=== PATIENT | female | born 1990 | race Caucasian/White ===

== ENCOUNTER 2022-10-14 07:24 | Inpatient (IN) ==
[2022-10-14] MEDS ORDERED: ACETAMINOPHEN 325 MG TAB PO PRN ×2 (09:36→22:42)
[2022-10-14] MEDS ORDERED: MoRPHine SULFATE 10 MG/ML CARP/VIAL IM STA (09:43)
[2022-10-14] MEDS: BUTORPHANOL TARTRATE 1 MG/ML VIAL IV PRN ×2 (10:30→12:28)
[2022-10-14] MEDS ORDERED: LACTATED RINGER'S 250 ML IV ONE (11:40)
[2022-10-14] MEDS ORDERED: LIDOCAINE 1% LOCAL 20 ML VIAL INFIL PRN (12:19)
[2022-10-14] MEDS ORDERED: OXYTOCIN 30 UNITS/500 ML BAG IV PRN ×2 (12:19→22:42)
[2022-10-14] MEDS ORDERED: ePHEDrine sulfate 50 MG/ML AMP ONE (12:23)
[2022-10-14] MEDS ORDERED: fentaNYL citrate 100 MCG/2 ML VIAL ONE (12:23)
[2022-10-14] MEDS ORDERED: SODIUM CHLORIDE 0.9% INJ 10 ML VIAL ONE (12:23)
[2022-10-14] MEDS ORDERED: LIDOCAINE 2%/EPINEPHRINE 1:200,000 20 ML SDV ONE (12:24)
[2022-10-14] MEDS ORDERED: fentaNYL 2MCG/ML ROPIVACAINE 1.25MG/ML 100 ML BAG EPI ONE (12:24)
[2022-10-14] MEDS ORDERED: BUPIVACAINE 0.25% 30 ML VIAL ONE (12:24)
[2022-10-14] MEDS: LACTATED RINGER'S 1,000 ML IV PRN ×3 (12:34→19:12)
--- NOTE | 2022-10-14 12:53 | Anesthesiology Consultation ---
Date of Service October 14, 2022 Assessment & Plan Chart Review Chart Review: Acceptable Risk for Surgery, Patient NOT seen in Pre Admission Testing and Acceptable Risk for Labor Epidural Consults Requested none ASA ASA2 Proposed Anesthesia Anesthesia Type: Labor Epidural and CSE Risk / Benefits Reviewed With: PT / POA / Parent / Guardian, Accepts Plan and Informed Consent Obtained History Height/Weight Height: 5 ft Weight: 51.256 kg Allergies Allergy/AdvReac Type Severity Reaction Status Date / Time Sulfa (Sulfonamide Allergy Unknown Verified 10/11/22 15:15 Antibiotics) Medications Home Medications Medication Instructions Recorded Confirmed Last Taken prenat.vits,thelma,iyd-xetr-kyuxf 1 tab PO DAILY 04/10/22 10/14/22 10/13/22 09:00 Active Medications Generic Name Dose Route Start Last Admin Trade Name Freq PRN Reason Stop Dose Admin Butorphanol Tartrate 1 mg 10/14/22 10:22 10/14/22 12:28 Butorphanol Tartrate 1 Mg/Ml Vial IV 11/13/22 10:21 1 mg Q2HWA PRN Administration Pain Lactated Ringer's 1,000 mls @ 125 mls/hr 10/14/22 12:19 10/14/22 12:34 Lr IV 10/16/22 12:18 999 mls/hr .Q8H PRN Administration L&D Protocol Protocol NPO Date Last Intake of Fluids: 10/14/22 Time Last Intake of Fluids: 12:00 Date Last Intake of Solids: 10/14/22 Time Last Intake of Solids: 05:30 Past Medical History Medical History Anorexia anemia;GERD Exercise / Class Metabolic Activity II 4-5 Yardwork/Stairs/Walk up hill Past Family History Family History Sister Asthma Father Asthma Mother Heart disease Past Surgical History Surgical History S/P dilation and curettage Past Anesthesia History No Hx of Anesthesia Complications and No Family Hx of Anesthesia Complications History of PONV No Hx of PONV and No Hx of Motion Sickness Social History Smoking Status: Never smoker Do You Dip or Chew Tobacco: No Hx Alcohol Use: Yes (prepregnancy) Alcohol Intake Frequency Comment: Pre- Hx Substance Use: No substance use type: does not use Physical Exam Vital Signs Last Vital Signs Temp 36.5 C 10/14/22 09:04 Pulse 75 10/14/22 09:04 Resp 16 10/14/22 07:32 BP 117/73 10/14/22 09:04 Constitutional + cachectic; no acute distress ENMT Mouth: no dentition abnormality Thyromental Distance: < 3.5 Finger Breadths Mallampati Class: II Neck normal visual inspection and trachea midline; neck extension not limited Respiratory normal respiratory effort Auscultation: lungs clear to auscultation bilaterally Cardiovascular Rate/Rhythm: regular rate and regular rhythm Heart Sounds: no murmur Musculoskeletal Spine: lumbar spine normal to inspection; normal cervical ROM and no pain with cervical ROM Extremities: full ROM of extremities Neurologic moves all extremities Motor/Sensory: no sensory deficit Psychiatric Orientation: alert and oriented x 3
[2022-10-14 12:55] LABS: Hematocrit (blood only) 33.2 % (37.0-47.0); Hemoglobin 10.8 g/dl (12.0-16.0); Mean Corpuscular Hemoglobin 25.7 pg (25.0-34.0); Mean Corpuscular Hgb Conc 32.5 g/dL (32.0-36.0); Mean Platelet Volume 11.8 fL (9.4-12.4); Platelet Count 176 K/uL (130-400); RDW Coefficient of Variation 13.9 % (11.5-14.5); RDW Standard Deviation 39.8 fL (36.4-46.3); White Blood Count 18.38 K/ul (4.8-10.8)
[2022-10-14] MEDS ORDERED: diphenhydrAMINE 50 MG/ML VIAL IV PRN (13:18)
[2022-10-14] MEDS ORDERED: fentaNYL 2MCG/ML ROPIVACAINE 1.25MG/ML 100 ML BAG EPI PRN (13:18)
[2022-10-14] MEDS ORDERED: NALOXONE HCL 1 MG in SODIUM CHLORIDE 0.9% 1000ML 1,000 ML IV PRN (13:18)
[2022-10-14] MEDS ORDERED: ePHEDrine sulfate 50 MG/ML AMP IV PRN (13:18)
[2022-10-14] MEDS ORDERED: NALBUPHINE HCL INJ 10 MG/ML AMP IV PRN (13:18)
[2022-10-14] MEDS ORDERED: ONDANSETRON INJ 2 MG/ML 2 ML VIAL IV PRN (13:18)
[2022-10-14] MEDS ORDERED: NALOXONE HCL 0.4 MG/1 ML VIAL/CARP IV PRN (13:18)
[2022-10-14] MEDS ORDERED: PROMETHAZINE HCL 25 MG in SODIUM CHLORIDE 0.9% 50 ML IV PRN (13:18)
--- NOTE | 2022-10-14 19:00 | Labor Progress Brief Note ---
Date of Service October 14, 2022 Subjective prolonged decel with recovery in hand/knee position Assessment & Plan (1) Supervision of normal intrauterine in primigravida: Plan: Progressing well. recovery from the decel in hand/ knee position. Tracing currently category 1. Admission and Anticipated Discharge Date Admission Date: October 14, 2022 Physical Exam Genitourinary: OB Exam Abdomen: + vertex Manual OB Exam: + cervical dilation (9.5), + cervical effacement 100%, + station 0 and + amniotic fluid meconium OB Exam Monitor Tracing: + external FHT monitor used, + external uterine monitor used, + category I, + category II and + normal FHT variability prolonged deceleration with recurred / knee position. Current category 1 tracing Results & Data ([facility]) Vital Signs (Past 12 Hours) Vital Signs Temp Pulse Resp BP Pulse Ox 10/14/22 18:55 78 99 10/14/22 18:52 68 113/60 10/14/22 18:50 93 H 95 10/14/22 18:49 94 H 82 L 10/14/22 18:45 87 100 10/14/22 18:40 93 H 86 L 10/14/22 18:38 77 83 L 10/14/22 18:35 70 100 10/14/22 18:30 83 94 10/14/22 18:26 81 80 L 10/14/22 18:25 81 93 10/14/22 18:23 93 H 121/75 10/14/22 18:20 78 96 10/14/22 18:15 78 97 10/14/22 18:10 77 97 10/14/22 18:09 73 116/67 10/14/22 18:05 79 94 10/14/22 18:00 78 18 99 10/14/22 17:57 75 80 L 10/14/22 17:55 81 96 10/14/22 17:54 73 120/76 10/14/22 17:50 79 88 L 10/14/22 17:45 77 100 10/14/22 17:40 89 97 10/14/22 17:39 87 124/86 10/14/22 17:35 78 97 10/14/22 17:33 75 81 L 10/14/22 17:30 71 18 94 10/14/22 17:28 79 84 L 10/14/22 17:25 77 99 10/14/22 17:23 70 120/74 10/14/22 16:00 16 10/14/22 16:00 36.4 C L 16 10/14/22 17:20 67 96 10/14/22 17:15 71 98 10/14/22 17:14 73 82 L 10/14/22 17:10 72 96 10/14/22 17:09 67 122/68 10/14/22 17:05 70 96 10/14/22 17:00 68 16 98 10/14/22 16:55 100 10/14/22 16:55 75 10/14/22 16:55 77 83 L 10/14/22 16:53 69 118/68 10/14/22 16:50 75 99 10/14/22 16:45 68 98 10/14/22 16:40 72 100 10/14/22 16:39 68 118/69 10/14/22 16:35 77 96 10/14/22 16:30 89 18 98 10/14/22 16:25 95 10/14/22 16:25 76 10/14/22 16:25 100 H 118/66 10/14/22 16:24 77 80 L 10/14/22 16:20 75 96 10/14/22 16:18 81 79 L 10/14/22 16:15 75 97 10/14/22 16:10 82 98 10/14/22 16:08 70 122/66 10/14/22 16:05 78 94 10/14/22 16:00 36.4 C L 73 16 100 10/14/22 15:55 80 96 10/14/22 15:54 78 119/68 10/14/22 15:50 73 97 10/14/22 15:45 67 97 10/14/22 15:40 86 91 10/14/22 15:39 86 114/68 10/14/22 15:34 75 98 10/14/22 15:29 90 100 10/14/22 15:24 100 10/14/22 15:24 75 02 15:24 82 119/74 10/14/22 15:19 70 100 10/14/22 15:14 67 99 10/14/22 15:09 73 93 10/14/22 15:08 72 114/64 10/14/22 15:04 70 99 10/14/22 14:59 77 99 10/14/22 14:54 77 20 99 10/14/22 14:53 75 121/66 10/14/22 14:49 89 100 10/14/22 14:44 76 98 10/14/22 14:39 69 111/56 L 100 10/14/22 14:34 72 18 100 10/14/22 14:29 74 100 10/14/22 14:27 75 82 L 10/14/22 14:24 66 99 10/14/22 14:23 66 108/57 L 10/14/22 14:19 80 94 10/14/22 14:14 73 100 10/14/22 14:09 65 100 10/14/22 14:08 67 111/56 L 10/14/22 14:04 68 20 100 10/14/22 13:59 69 100 10/14/22 13:54 71 100 10/14/22 13:53 69 107/54 L 10/14/22 13:49 73 20 100 10/14/22 13:44 82 100 10/14/22 13:39 91 H 100 10/14/22 13:38 93 H 107/57 L 10/14/22 13:34 101 H 20 99 10/14/22 13:31 101 H 113/63 10/14/22 13:29 83 113/59 L 100 10/14/22 13:27 112 H 103/55 L 10/14/22 13:24 94 10/14/22 13:24 86 10/14/22 13:25 96 H 103/59 L 10/14/22 13:24 106 H 105/55 L 10/14/22 13:21 100 H 121/56 L 10/14/22 13:19 89 L 10/14/22 13:19 102 H 10/14/22 13:19 93 H 102/65 10/14/22 13:17 86 100/59 L 10/14/22 13:14 103 H 96 10/14/22 13:15 89 97/53 L 10/14/22 13:13 88 102/56 L 10/14/22 13:11 105 H 116/69 10/14/22 13:09 94 H 123/75 97 10/14/22 13:07 75 131/79 10/14/22 13:04 80 97 10/14/22 12:59 85 100 10/14/22 12:55 84 80 L 10/14/22 12:54 80 100 10/14/22 12:49 84 96 10/14/22 12:50 85 92 10/14/22 09:04 36.5 C 75 117/73 10/14/22 07:32 16 10/14/22 07:32 36.4 C L 16 10/14/22 08:01 80 127/83 10/14/22 07:56 75 121/81 10/14/22 07:47 83 128/93 10/14/22 07:30 76 130/90 10/14/22 07:29 36.4 C L 16 Coding Level of Care Code None Diagnoses Supervision of normal intrauterine in primigravida Z34.00
--- NOTE | 2022-10-14 19:05 | History & Physical Report ---
Date of Service October 14, 2022 Assessment & Plan (1) Normal labor: Plan: Lou is a 32 year old currently 38 weeks 2 days gestational age presents in labor. 1. Fetus: Cat 1 2. Labor: Progressing. Will augment PRN 3. GBS negative (2) Supervision of normal intrauterine in primigravida: (3) Rubella non-immune status, antepartum: Admission and Anticipated Discharge Date Admission Date: October 14, 2022 History of Present Illness Primary Care Provider: NO PCP Lou is a 32-year-old currently at 38 weeks 2 days gestational age presents for labor. At initial check patient was 2 cm dilated. Progressed to 4 cm dilation. Denying leakage of fluid or vaginal bleeding. Good movement. complicated by an eating disorder. OB Labs: Blood Type B Positive 04/13/22 Antibody Screen NEGATIVE 04/13/22 Hemoglobin 11.3 g/dl (12.0-16.0) L 08/03/22 Hematocrit 33.9 % (34.1-44.9) L 08/03/22 Mean Corpuscular Volume 91.8 fL (80.0-100.0) 04/13/22 Platelet Count 151 K/uL (130-400) 04/13/22 Rubella IgG Antibody Equivocal (Immune) L 04/13/22 Rapid Plasma Reagin Nonreactive (Nonreactive) 08/03/22 Hepatitis B Surface Antigen. NON-REACTIVE (NON-REACTIVE) 04/13/22 Hepatitis C Antibody (EIA) NON-REACTIVE (NON-REACTIVE) 04/13/22 Glucose 1 Hour 50 gm Load 126 mg/dl (70-130) 08/03/22 Maternal Serum Alpha Fetoprotein 39.0 ng/mL 05/11/22 OB Optional Labs: Alpha Fetoprotein Triple Screen SEE NOTE 05/11/22 Labs Reviewed: cf/sma-negative--mln cfdna-low risk--mln Initial OB Labs (03/01/22) Chlamydia negative Gonorrhea negative RPR non reactive HIV non reactive msafp neg --smp Allergies Allergy/AdvReac Type Severity Reaction Status Date / Time Sulfa (Sulfonamide Allergy Unknown Verified 10/11/22 15:15 Antibiotics) Home Medications Medication Instructions Recorded Confirmed Type prenat.vits,thelma,qto-ebus-pvriu 1 tab PO DAILY 08/09/22 02/12/23 History Patient History Medical History Anorexia Surgical History S/P dilation and curettage Family History Sister Asthma Father Asthma Mother Heart disease Social History Smoking Status: Never smoker Second Hand Exposure: No; Do You Dip or Chew Tobacco: No; Tobacco Cessation Education Requested by Patient: No Hx Alcohol Use: Yes (prepregnancy) Hx Substance Use: No Preferred Language: Japanese Communication Ability: Effective Sanitary Napkin Machine Tender Required: No Beliefs That Will Affect Care: None marital status: Single marital status details: EKTA: Jose (31) [phone] Current Living Situation: Significant Other Current Living Situation Comment: lives with FOB and his grandmother, 1 dog. current occupational status: employed current occupation: [employer] Other Information That Helps Us Care for You: No Feels Safe at Home: Yes Safety Concerns: Feels Safe At This Time Assistive Devices: Contacts Physical Exam Genitourinary: OB Exam Abdomen: + vertex Manual OB Exam: + cervical dilation 4 cm, + cervical effacement 80% and + station -2 OB Exam Monitor Tracing: + external FHT monitor used, + external uterine monitor used, + category I and + normal FHT variability Results & Data ([facility]) Vital Signs (Past 12 Hours) Vital Signs Temp Pulse Resp BP Pulse Ox 10/14/22 18:55 78 99 10/14/22 18:52 68 113/60 10/14/22 18:50 93 H 95 10/14/22 18:49 94 H 82 L 10/14/22 18:45 87 100 10/14/22 18:40 93 H 86 L 10/14/22 18:38 77 83 L 10/14/22 18:35 70 100 10/14/22 18:30 83 94 10/14/22 18:26 81 80 L 10/14/22 18:25 81 93 10/14/22 18:23 93 H 121/75 10/14/22 18:20 78 96 10/14/22 18:15 78 97 02/12/23 18:10 77 97 10/14/22 18:09 73 116/67 10/14/22 18:05 79 94 10/14/22 18:00 78 18 99 10/14/22 17:57 75 80 L 10/14/22 17:55 81 96 10/14/22 17:54 73 120/76 10/14/22 17:50 79 88 L 10/14/22 17:45 77 100 10/14/22 17:40 89 97 10/14/22 17:39 87 124/86 10/14/22 17:35 78 97 10/14/22 17:33 75 81 L 10/14/22 17:30 71 18 94 10/14/22 17:28 79 84 L 10/14/22 17:25 77 99 10/14/22 17:23 70 120/74 10/14/22 16:00 16 10/14/22 16:00 36.4 C L 16 10/14/22 17:20 67 96 10/14/22 17:15 71 98 10/14/22 17:14 73 82 L 10/14/22 17:10 72 96 10/14/22 17:09 67 122/68 10/14/22 17:05 70 96 10/14/22 17:00 68 16 98 10/14/22 16:55 100 10/14/22 16:55 75 10/14/22 16:55 77 83 L 10/14/22 16:53 69 118/68 10/14/22 16:50 75 99 10/14/22 16:45 68 98 10/14/22 16:40 72 100 10/14/22 16:39 68 118/69 10/14/22 16:35 77 96 10/14/22 16:30 89 18 98 10/14/22 16:25 95 10/14/22 16:25 76 10/14/22 16:25 100 H 118/66 10/14/22 16:24 77 80 L 10/14/22 16:20 75 96 10/14/22 16:18 81 79 L 10/14/22 16:15 75 97 10/14/22 16:10 82 98 10/14/22 16:08 70 122/66 10/14/22 16:05 78 94 10/14/22 16:00 36.4 C L 73 16 100 10/14/22 15:55 80 96 10/14/22 15:54 78 119/68 10/14/22 15:50 73 97 10/14/22 15:45 67 97 10/14/22 15:40 86 91 10/14/22 15:39 86 114/68 10/14/22 15:34 75 98 10/14/22 15:29 90 100 10/14/22 15:24 100 10/14/22 15:24 75 10/14/22 15:24 82 119/74 10/14/22 15:19 70 100 10/14/22 15:14 67 99 10/14/22 15:09 73 93 10/14/22 15:08 72 114/64 10/14/22 15:04 70 99 10/14/22 14:59 77 99 10/14/22 14:54 77 20 99 10/14/22 14:53 75 121/66 10/14/22 14:49 89 100 10/14/22 14:44 76 98 10/14/22 14:39 69 111/56 L 100 10/14/22 14:34 72 18 100 10/14/22 14:29 74 100 10/14/22 14:27 75 82 L 10/14/22 14:24 66 99 10/14/22 14:23 66 108/57 L 10/14/22 14:19 80 94 10/14/22 14:14 73 100 10/14/22 14:09 65 100 10/14/22 14:08 67 111/56 L 10/14/22 14:04 68 20 100 10/14/22 13:59 69 100 10/14/22 13:54 71 100 10/14/22 13:53 69 107/54 L 10/14/22 13:49 73 20 100 10/14/22 13:44 82 100 10/14/22 13:39 91 H 100 10/14/22 13:38 93 H 107/57 L 10/14/22 13:34 101 H 20 99 10/14/22 13:31 101 H 113/63 10/14/22 13:29 83 113/59 L 100 10/14/22 13:27 112 H 103/55 L 10/14/22 13:24 94 10/14/22 13:24 86 10/14/22 13:25 96 H 103/59 L 10/14/22 13:24 106 H 105/55 L 10/14/22 13:21 100 H 121/56 L 10/14/22 13:19 89 L 10/14/22 13:19 102 H 10/14/22 13:19 93 H 102/65 10/14/22 13:17 86 100/59 L 10/14/22 13:14 103 H 96 10/14/22 13:15 89 97/53 L 10/14/22 13:13 88 102/56 L 10/14/22 13:11 105 H 116/69 10/14/22 13:09 94 H 123/75 97 10/14/22 13:07 75 131/79 10/14/22 13:04 80 97 10/14/22 12:59 85 100 10/14/22 12:55 84 80 L 10/14/22 12:54 80 100 10/14/22 12:49 84 96 10/14/22 12:50 85 92 10/14/22 09:04 36.5 C 75 117/73 10/14/22 07:32 16 10/14/22 07:32 36.4 C L 16 10/14/22 08:01 80 127/83 10/14/22 07:56 75 121/81 10/14/22 07:47 83 128/93 10/14/22 07:30 76 130/90 10/14/22 07:29 36.4 C L 16 Coding Level of Care Code None Diagnoses Normal labor O80; Z37.9 Supervision of normal intrauterine in primigravida Z34.00 Rubella non-immune status, antepartum O09.899; Z28.39
[2022-10-14] MEDS ORDERED: DIPHTHERIA/TETANUS/PERTUSSIS 0.5mL SYR/VIAL (Age 7+yrs) IM ONE (22:42)
[2022-10-14] MEDS ORDERED: bisacodyL 10 MG SUPP PR PRN (22:42)
[2022-10-14] MEDS ORDERED: HYDROCORTISONE ACETATE 25 MG SUPP PR PRN (22:42)
[2022-10-14] MEDS ORDERED: BENZOCAINE 20% AER SPR 82.5 GM CAN EXT PRN (22:42)
[2022-10-15] MEDS: IBUPROFEN 600 MG TAB PO PRN ×4 (00:53→16:26)
--- NOTE | 2022-10-15 05:31 | Obstetrical Progress Note ---
Date of Service October 15, 2022 Assessment & Plan (1) care following vaginal delivery: (2) Rubella non-immune status, antepartum: Plan - Overall, feeling well and eating well today - Infant feeding going well without concern - Urinating and passing gas appropriately - Ambulating well in room - Pain controlled w/ Ibuprofen - Hgb 10.8 on 10/14 - Vitals stable and wnl - Routine PP care progressing well - Rubella non-immune - Anticipate discharge @ 24-48 hours PP - Recommending f/u outpatient in 6 weeks Admission and Anticipated Discharge Date Admission Date: October 14, 2022 Supervising Physician Co-Signing Physician Notes Patient seen with resident and agree with the above findings and plan. Routine post care Subjective Patient is a 32F who is PPD # 1 following delivery at 38 2/. She reports feeling well overall this morning. - Ambulation - well throughout room - Voiding/Ceja - independent voids, no dysuria or pressure - Gas/Stool - passing gas, no bowel movement - Diet - regular, no nausea or emesis - Lochia - diminishing, moderate amount - Feeding Type - breast feeding - Pain Level - 5/10, controlled with Ibuprofen Review of Systems - Denies fever, chills, sweats - Denies shortness of breath, difficulty breathing, chest pain, palpitations, chest pressure. - Denies breast pain. - Denies dysuria. - Denies headache or changes in vision. Physical Exam Physical Exam: General: Alert, oriented. No acute distress. Cardiac: RRR, normal S1/S2, no murmurs/rubs/gallops. Respiratory: Non-labored, CTAB, no wheezes/rales/rhonchi. Symmetric chest rise. Abdomen: Soft, nontender, nondistended. Bowel sounds present. Uterus: Uterine fundus firm, palpable 2 cm below umbilicus. Lower Extremities: No lower extremity edema or swelling. No deep calf pain. Kimberley's negative bilaterally. Results & Data ([facility]) Vital Signs (Past 12 Hours) Vital Signs Temp Pulse Pulse Resp BP BP Pulse Ox 10/15/22 03:10 36.9 C 80 16 123/77 10/15/22 00:50 37.2 C 89 22 129/83 100 10/14/22 23:10 18 10/15/22 00:40 18 10/15/22 00:10 18 10/14/22 23:40 18 10/14/22 23:25 18 10/14/22 22:55 18 10/14/22 22:40 18 10/14/22 19:05 36.7 C 18 10/14/22 19:05 10/15/22 00:35 100 H 139/87 10/15/22 00:23 91 H 127/79 10/15/22 00:08 90 133/87 10/14/22 23:53 75 131/84 10/14/22 23:38 79 131/81 10/14/22 22:29 20 10/14/22 22:29 20 10/14/22 23:23 90 136/76 10/14/22 22:15 18 10/14/22 22:15 18 10/14/22 22:00 20 10/14/22 22:00 20 10/14/22 23:08 94 H 135/71 10/14/22 22:53 105 H 136/85 10/14/22 22:40 104 H 79 L 10/14/22 22:38 105 H 97 10/14/22 22:39 110 H 123/67 10/14/22 22:33 107 H 100 10/14/22 22:28 155 H 70 L 10/14/22 22:23 106 H 85 L 10/14/22 22:18 109 H 99 10/14/22 22:19 116 H 81 L 10/14/22 22:13 118 H 97 10/14/22 22:08 137 H 128/76 98 10/14/22 22:07 109 H 81 L 10/14/22 22:03 103 H 97 10/14/22 22:01 80 L 10/14/22 22:01 95 H 10/14/22 22:01 96 H 119/72 10/14/22 21:57 125 H 93 10/14/22 21:52 147 H 95 10/14/22 21:45 101 H 20 84 L 10/14/22 21:40 97 H 96 10/14/22 21:39 148 H 113/70 10/14/22 21:35 103 H 100 10/14/22 21:30 139 H 18 99 10/14/22 21:26 105 H 84 L 10/14/22 21:25 106 H 95 10/14/22 21:23 110 H 122/79 10/14/22 21:20 100 10/14/22 21:20 94 H 10/14/22 21:20 108 H 119/77 10/14/22 21:15 99 H 18 94 10/14/22 21:10 127 H 97 10/14/22 21:09 81 L 10/14/22 21:09 111 H 10/14/22 21:09 112 H 132/90 10/14/22 21:05 104 H 93 10/14/22 21:03 36.7 C 87 18 81 L 10/14/22 21:00 94 H 18 97 10/14/22 20:55 89 97 10/14/22 20:53 93 H 123/69 10/14/22 20:50 85 98 10/14/22 20:45 98 10/14/22 20:45 92 H 10/14/22 20:45 91 H 84 L 10/14/22 20:40 87 99 10/14/22 20:38 93 H 118/70 10/14/22 20:35 95 H 97 10/14/22 20:32 92 H 82 L 10/14/22 20:30 86 18 96 10/14/22 20:25 82 99 10/14/22 20:23 82 118/70 10/14/22 20:20 75 98 10/14/22 20:15 78 94 10/14/22 20:10 78 84 L 10/14/22 20:08 82 120/66 10/14/22 20:06 87 82 L 10/14/22 20:05 96 H 95 10/14/22 20:00 84 18 99 10/14/22 19:55 89 98 10/14/22 19:54 83 126/79 10/14/22 19:53 84 125/78 10/14/22 19:50 87 99 10/14/22 19:47 89 84 L 10/14/22 19:45 97 H 99 10/14/22 19:40 87 97 10/14/22 19:38 75 116/67 10/14/22 19:36 77 83 L 10/14/22 19:35 80 99 10/14/22 19:30 74 18 100 10/14/22 19:25 71 100 10/14/22 19:24 77 116/70 10/14/22 19:20 73 100 10/14/22 19:15 85 96 10/14/22 19:10 83 98 10/14/22 19:08 75 110/57 L 10/14/22 19:05 36.7 C 80 18 100 10/14/22 18:01 36.8 C 10/14/22 19:00 84 100 10/14/22 18:55 78 99 10/14/22 18:52 68 113/60 10/14/22 18:50 93 H 95 10/14/22 18:49 94 H 82 L 10/14/22 18:45 87 100 10/14/22 18:40 93 H 86 L 10/14/22 18:38 77 83 L 10/14/22 18:35 70 100 10/14/22 18:30 83 94 10/14/22 18:26 81 80 L 10/14/22 18:25 81 93 10/14/22 18:23 93 H 121/75 10/14/22 18:20 78 96 10/14/22 18:15 78 97 10/14/22 18:10 77 97 10/14/22 18:09 73 116/67 10/14/22 18:05 79 94 10/14/22 18:00 78 18 99 10/14/22 17:57 75 80 L 10/14/22 17:55 81 96 10/14/22 17:54 73 120/76 10/14/22 17:50 79 88 L 10/14/22 17:45 77 100 10/14/22 17:40 89 97 10/14/22 17:39 87 124/86 10/14/22 17:35 78 97 10/14/22 17:33 75 81 L O2 Del Method 10/15/22 03:10 Room Air 10/15/22 00:50 Room Air 10/14/22 23:10 10/15/22 00:40 10/15/22 00:10 10/14/22 23:40 10/14/22 23:25 10/14/22 22:55 10/14/22 22:40 10/14/22 19:05 10/14/22 19:05 Room Air 10/15/22 00:35 10/15/22 00:23 10/15/22 00:08 10/14/22 23:53 10/14/22 23:38 10/14/22 22:29 10/14/22 22:29 10/14/22 23:23 10/14/22 22:15 10/14/22 22:15 10/14/22 22:00 10/14/22 22:00 10/14/22 23:08 10/14/22 22:53 10/14/22 22:40 10/14/22 22:38 10/14/22 22:39 10/14/22 22:33 10/14/22 22:28 10/14/22 22:23 10/14/22 22:18 10/14/22 22:19 10/14/22 22:13 10/14/22 22:08 10/14/22 22:07 10/14/22 22:03 10/14/22 22:01 10/14/22 22:01 10/14/22 22:01 10/14/22 21:57 10/14/22 21:52 10/14/22 21:45 10/14/22 21:40 10/14/22 21:39 10/14/22 21:35 10/14/22 21:30 10/14/22 21:26 10/14/22 21:25 10/14/22 21:23 10/14/22 21:20 10/14/22 21:20 10/14/22 21:20 10/14/22 21:15 10/14/22 21:10 10/14/22 21:09 10/14/22 21:09 10/14/22 21:09 10/14/22 21:05 10/14/22 21:03 10/14/22 21:00 10/14/22 20:55 10/14/22 20:53 10/14/22 20:50 10/14/22 20:45 10/14/22 20:45 10/14/22 20:45 10/14/22 20:40 10/14/22 20:38 10/14/22 20:35 10/14/22 20:32 10/14/22 20:30 10/14/22 20:25 10/14/22 20:23 10/14/22 20:20 10/14/22 20:15 10/14/22 20:10 10/14/22 20:08 10/14/22 20:06 10/14/22 20:05 10/14/22 20:00 10/14/22 19:55 10/14/22 19:54 10/14/22 19:53 10/14/22 19:50 10/14/22 19:47 10/14/22 19:45 10/14/22 19:40 10/14/22 19:38 10/14/22 19:36 10/14/22 19:35 10/14/22 19:30 10/14/22 19:25 10/14/22 19:24 10/14/22 19:20 10/14/22 19:15 10/14/22 19:10 10/14/22 19:08 10/14/22 19:05 10/14/22 18:01 10/14/22 19:00 10/14/22 18:55 10/14/22 18:52 10/14/22 18:50 10/14/22 18:49 10/14/22 18:45 10/14/22 18:40 10/14/22 18:38 10/14/22 18:35 10/14/22 18:30 10/14/22 18:26 10/14/22 18:25 10/14/22 18:23 10/14/22 18:20 10/14/22 18:15 10/14/22 18:10 10/14/22 18:09 10/14/22 18:05 10/14/22 18:00 10/14/22 17:57 10/14/22 17:55 10/14/22 17:54 10/14/22 17:50 10/14/22 17:45 10/14/22 17:40 10/14/22 17:39 10/14/22 17:35 10/14/22 17:33 Resident Activity Tracking Resident Involvement: Resident Care Provided Care Provided: Adult Hospital Medicine
[2022-10-15 08:41] LABS: Hematocrit (blood only) 32.3 % (37.0-47.0); Hemoglobin 10.4 g/dl (12.0-16.0)
[2022-10-15] MEDS: PRENATAL VITAMIN 1 TAB PO SCH (08:54)
[2022-10-15] MEDS: DOCUSATE SODIUM 100 MG CAP PO SCH ×2 (08:55→21:06)
[2022-10-15] MEDS: FERROUS SULFATE 325 MG TAB PO SCH (08:55)
--- NOTE | 2022-10-15 09:07 | Anesthesia Procedure Note ---
Date of Service October 15, 2022 Anesthesia Post Epidural Note Vital Signs Vital Signs: Temp Pulse Resp BP Pulse Ox O2 Del Method 36.8 C 78 16 112/69 98 10/15/22 07:49 10/15/22 07:49 10/15/22 07:49 10/15/22 07:49 10/15/22 07:49 10/15/22 07:49 Pain Intensity Lower Back: Pain Intensity: 5 Notes Mental Status: alert / awake / arousable and participated in evaluation Nausea / Vomiting: adequately controlled Pain: adequately controlled Airway Patency, RR, SpO2: stable & adequate BP & HR: stable & adequate Hydration State: stable & adequate
[2022-10-15] MEDS ORDERED: bisacodyL 5 MG TABEC PO SCH (20:00)
--- NOTE | 2022-10-16 05:13 | Obstetrical Progress Note ---
Date of Service October 16, 2022 Assessment & Plan (1) care following vaginal delivery: (2) Rubella non-immune status, antepartum: Plan - Overall, feeling well and eating well today - Infant feeding going well without concern - Urinating and passing gas appropriately - Ambulating well in room - Pain controlled w/ Ibuprofen - Hgb 10.8 on 10/14 - Vitals stable and wnl - Routine PP care progressing well - Rubella non-immune - Anticipate discharge @ 24-48 hours PP - Recommending f/u outpatient in 6 weeks Admission and Anticipated Discharge Date Admission Date: October 14, 2022 Subjective Patient is a 32F who is PPD # 2 following delivery at 38 2/7. She reports feeling well overall this morning. - Ambulation - well throughout room - Voiding/Ceja - independent voids, no dysuria or pressure - Gas/Stool - passing gas, no bowel movement - Diet - regular, no nausea or emesis - Lochia - diminishing, light amount - Infant Feeding Type - breast feeding - Pain Level - 3/10, controlled with Ibuprofen Review of Systems - Denies fever, chills, sweats - Denies shortness of breath, difficulty breathing, chest pain, palpitations, chest pressure. - Denies breast pain. - Denies dysuria. - Denies headache or changes in vision. Physical Exam Physical Exam: General: Alert, oriented. No acute distress. Cardiac: RRR, normal S1/S2, no murmurs/rubs/gallops. Respiratory: Non-labored, CTAB, no wheezes/rales/rhonchi. Symmetric chest rise. Abdomen: Soft, nontender, nondistended. Bowel sounds present. Uterus: Uterine fundus firm, palpable 2 cm below umbilicus. Lower Extremities: No lower extremity edema or swelling. No deep calf pain. Kimberley's negative bilaterally. Results & Data ([facility]) Vital Signs (Past 12 Hours) Vital Signs Temp Pulse Resp BP Pulse Ox O2 Del Method 10/15/22 23:00 36.8 C 80 16 126/84 98 Room Air 10/15/22 21:00 36.7 C 77 16 124/78 97 Room Air Resident Activity Tracking Resident Involvement: Resident Care Provided Care Provided: OB Delivery
[2022-10-16] MEDS ORDERED: MEASLES, MUMPS & RUBELLA VIRUS VIAL SQ ONE (06:55)
[2022-10-16] MEDS: PRENATAL VITAMIN 1 TAB PO SCH (08:05)
[2022-10-16] MEDS: FERROUS SULFATE 325 MG TAB PO SCH (08:05)
[2022-10-16] MEDS: DOCUSATE SODIUM 100 MG CAP PO SCH (08:05)
--- NOTE | 2022-10-18 13:04 | Delivery Summary ---
DATE OF SERVICE: 10/14/2022 PROCEDURE: Normal spontaneous vaginal delivery. SURGEON: Francis Posey MD. PREOPERATIVE DIAGNOSES: 1. Single intrauterine at 38 weeks 2 days gestational age. 2. Spontaneous labor. 3. Meconium stained fluid. POSTOPERATIVE DIAGNOSES: 1. Single intrauterine at 38 weeks 2 days gestational age. 2. Spontaneous labor. 3. Meconium stained fluid. 4. Status post procedure. ESTIMATED BLOOD LOSS: 100 mL. DRAINS: None. FLUIDS: Continuous lactated Ringer. URINE OUTPUT: Not measured. COMPLICATIONS: None. FINDINGS: Viable male with weight of 6 pounds 4 ounces and Apgars of 5 and 9 at one and five minutes respectively. DESCRIPTION OF PROCEDURE: The patient progressed to 10 cm dilated, 100% effaced, positive 2 station, pushed over intact perineum with epidural anesthesia and delivered a viable male with weight and Apgars as noted above. Head of the delivered in ANNALISE position, restituted right transver se. No nuchal cord was noted. Body and shoulders quickly followed. After delivery, the sh owed some signs of tone and appeared to have some spontaneous sounds, but did not start vigorous cryi ng. The cord was then double clamped and cut. was taken to the waiting nursery staff for ev aluation. At this time, attention was turned to the delivery of placenta. Cord bloods were obtained followed by cord segment. The placenta delivered intact, 3-vessel cord, gentle cord traction. On i nspection of the perineum, vagina, cervix, there was noted to be no lacerations. Sponge and instrume nt counts were correct at the completion of the case. Both mother and stable in the immediat e post-delivery period. Job ID: [id number]
== END 2022-10-16 11:37 | disposition home or self-care (01) | DRG 807 ==
LOC: OPB 07:24 → 4S1 07:26 → 4E2 10-15 00:45